=== PATIENT | female | born 2005 | race Caucasian/White ===

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

== ENCOUNTER 2025-03-06 08:22 | Inpatient (IN) ==
[2025-03-06] MEDS ORDERED: ROPIVACAINE 0.2% 200 MG/100 ML BAG EP ONE (10:42)
[2025-03-06] MEDS ORDERED: LIDOCAINE 2%-EPI 1:100000 20 ML MDV ONE (10:42)
[2025-03-06] MEDS ORDERED: METHYLERGONOVINE 0.2 MG/ML VIAL IM PRN (10:57)
[2025-03-06] MEDS ORDERED: METOCLOPRAMIDE 10 MG TABLET PO PRN (10:57)
[2025-03-06] MEDS ORDERED: ONDANSETRON ODT 4 MG TABLET PO PRN (10:57)
[2025-03-06] MEDS ORDERED: hydrALAZINE INJ 20 MG/ML VIAL IVP PRN (10:57)
[2025-03-06] MEDS ORDERED: OXYTOCIN 10 UNIT/ML VIAL IM PRN (10:57)
[2025-03-06] MEDS ORDERED: ACETAMINOPHEN 500 MG TABLET PO PRN ×2 (10:57→23:24)
[2025-03-06] MEDS ORDERED: OXYTOCIN/SODIUM CHLORIDE 500 ML IV PRN ×2 (10:57→23:24)
[2025-03-06] MEDS ORDERED: LABETALOL 20 MG/4 ML SYRINGE IVP PRN ×3 (10:57)
[2025-03-06] MEDS ORDERED: TERBUTALINE 1 MG/ML VIAL SUBQ PRN (10:57)
[2025-03-06] MEDS ORDERED: CARBOPROST TROMETHAMINE 250 MCG/ML VIAL IM PRN (10:57)
[2025-03-06] MEDS ORDERED: TRANEXAMIC ACID IN NACL 1,000 MG/100 ML BAG IV PRN (10:57)
[2025-03-06] MEDS ORDERED: LACTATED RINGERS 1,000 ML IV PRN (10:57)
[2025-03-06] MEDS ORDERED: SODIUM CHLORIDE FLUSH 0.9% 10 ML SYRINGE IVP SCH (11:00)
--- NOTE | 2025-03-06 11:10 | ANESTHESIA PROCEDURE NOTE ---
Pre-Anesthesia VS, & Labs Diagnosis Surgical Diagnosis:: labor pain Procedure Procedure: labor epidural Vitals Vital Signs: Temp Pulse Resp BP 36.6 C 95 18 124/74 03/06/25 08:33 03/06/25 08:33 03/06/25 08:33 03/06/25 08:33 NPO NPO: Other Is Patient ?: Yes Meds/Allgy Home Medications Ambulatory Orders Medication Instructions Recorded Confirmed aspirin 81 mg tablet,delayed 81 mg PO QDAY preeclampsi a 08/25/24 03/01/25 release prevention #180 tabs vitamins no.93-iron 31 1 tab PO QAM 08/25/24 03/01/25 mg-folate no.9 1 mg-dha-200 mg capsule ferrous sulfate 1 tab PO .every other day 03/01/25 epinephrine 0.3 mg/0.3 mL 0.3 mg (0.3 mL) IM Q5-15M SC N 02/22/25 03/01/25 injection, auto-injector (EpiPen anaphylaxis #2 ea 2-Stanislav) acetaminophen 325 mg tablet 325 mg PO Q6H PRN 03/01/25 03/01/25 (Tylenol) Allergies Allergies Allergy/AdvReac Type Severity Reaction Status Date / Time amoxicillin Allergy Intermediate Rash Verified 02/28/25 09:46 bee venom protein (honey bee) Allergy Unknown Verified 02/28/25 09:46 Penicillins AdvReac Unknown Verified 02/28/25 09:46 PFSH Active Problems All Active Problems Supervision of normal first in third trimester (Acute) Normal labor (Acute) Elevated LFTs (Acute) Anemia affecting (Acute) Supervision of normal in second trimester (Acute) Obesity affecting (Acute) Medical History Medical History Sinusitis, acute Humerus fracture Contusion of hip, left Laceration of mouth Family History Family History Sister Asthma Paternal grandmother Diabetes High blood pressure Maternal grandfather Heart attack Alcoholism Maternal grandfather Alcoholism Social History Social History Smoking Status: Former smoker Second hand tobacco smoke exposure: Yes Do you dip or chew tobacco?: No Do you vape?: Yes Patient requests smoking cessation consult: No Living arrangement: At home Living Condition: With family Level: Independent Do you feel safe in your home environment?: Yes History of physical, verbal, emotional, or financial abuse?: No ETOH Use: None Substance Use: denies use Are you sexually active?: Yes 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 Are you following a diet prescribed by a doctor: No Are you following a special diet: No POLST Patient has POLST: No POLST CPR Status: Attempt Resuscitation (CPR) Anesthesia Exam (Expanded) Exam General: Alert, Oriented x3 and Cooperative Dental: WNL Mouth Openin Fingerbreadth Neck Mobility: Normal Mallampati classification: III Thyromental Distance: 4-6 cm Respiratory: Lungs clear Cardiovascular: Regular rate Exam Exam Vital Signs: Vital Signs x48h Temp Pulse Resp BP 03/06/25 08:33 36.6 C 95 18 124/74 Plan Plan Anesthesia Type: Epidural Consent for Procedure(s) Verified and Reviewed: Yes Code Status: Attempt Resuscitation ASA Classification ASA classification: 2-Mild systemic disease Is this case an emergency?: No
--- OUTSIDE RECORDS SUMMARY | 2025-03-06 11:16 | EXTERNAL MEDICAL SUMMARY RPT | Continuity of Care Document ---
Author Organization [facility] Address [address] [place] [id number] Phone Problems date description facility 2024-12-08 13:49 Other specified diseases of blanca s and rectum [facility] 2024-12-08 13:49 Unspecified abdominal pain [facility] 2024-12-13 14:28 Encounter for immunization [facility] 2024-12-13 14:30 Encounter for superv ision of normal , unspecified, unspecified trimester [facility] 2024-12-13 14:30 Encounter for superv ision of normal , unspecified, second trimester [facility] 2024-12-14 00:04 Encounter for superv ision of normal , unspecified, unspecified trimester [facility] 2024-12-14 00:04 Encounter for superv ision of normal , unspecified, second trimester [facility] 2024-12-14 08:11 Encounter for superv ision of normal , unspecified, unspecified trimester [facility] 2024-12-14 08:11 Encounter for superv ision of normal , unspecified, second trimester [facility] 2024-12-14 08:14 Encounter for superv ision of normal , unspecified, unspecified trimester [facility] 2024-12-14 08:14 Encounter for superv ision of normal , unspecified, second trimester [facility] 2024-12-14 13:23 Encounter for superv ision of normal , unspecified, second trimester [facility] 2024-12-16 15:48 Abnormal glucose complicating p regnancy [facility] 2024-12-20 08:05 Abnormal glucose complicating p regnancy [facility] 2024-12-20 08:06 Abnormal glucose complicating p regnancy [facility] 2024-12-20 10:10 Abnormal glucose complicating p regnancy [facility] 2024-12-21 00:03 [facility]-21 11:14 Abnormal glucose complicating p [facility]paris [facility] 2025-01-26 00:02 Anemia complicating , unspecified [facility] 2025-01-27 08:45 Maternal care for br eech presentation, not applicable or unspecified [facility] 2025-01-27 08:45 Anemia complicating , unspecified [facility] 2025-01-27 08:45 33 weeks gestation [facility] 2025-02-10 15:30 Encounter for superv ision of normal , unspecified, third [facility] 2025-02-15 11:16 Encounter for screeni ng for Streptococcus B [facility] 2025-02-15 11:16 Allergy status to penicillin [employer] 2025-02-15 12:43 Encounter for screeni ng for Streptococcus B [facility] 2025-02-15 12:43 Allergy status to penicillin [facility] 2025-02-15 12:44 Encounter for screeni ng for Streptococcus B [facility] 2025-02-15 12:44 Allergy status to penicillin [employer] 2025-02-16 00:04 Encounter for screeni ng for Streptococcus B [facility] 2025-02-16 00:04 Allergy status to penicillin [employer] 2025-02-16 14:26 Encounter for screeni ng for Streptococcus B [facility] 2025-02-16 14:26 Allergy status to penicillin [facility] 2025-02-21 07:34 Obesity complicating , third [facility] 2025-02-21 07:34 Encounter for screeni ng for Streptococcus B [employer] 2025-02-21 07:34 Allergy status to penicillin [facility] 2025-02-21 07:35 Encounter for screeni ng for Streptococcus B [employer] 2025-02-21 07:35 Allergy status to penicillin [employer] 2025-02-22 10:57 Obesity complicating , unspecified trimester [facility] 2025-02-22 10:57 Bee allergy status [facility] 2025-02-24 07:50 Obesity complicating , third trimester [facility] 2025-02-24 07:51 Obesity complicating , unspecified trimester [facility] 2025-02-24 07:51 Obesity complicating , third trimester [facility] 2025-02-24 07:51 37 weeks gestation of [facility] 2025-02-24 07:51 Bee allergy status [facility] 2025-02-26 00:54 37 weeks gestation of [facility] 2025-02-26 01:08 37 weeks gestation of [facility] 2025-02-26 01:09 37 weeks gestation of [facility] 2025-02-26 02:18 37 weeks gestation of [facility] Results/Labs test date facility value unit notes Result panel 1 HGB - HEMOGLOBIN 2024-12-13 14:50 [facility] 10.2 g /dl (missing) WHITE BLOOD COUNT 2024-12-13 14:50 [facility] 10.3 x10 3/ul (missing) RED CELL DISTRIBUTION WIDTH 2024-12-13 14:50 [facility] 14.7 % (missing) GLUCOSE,1H PP 50GM DOSE 2024-12-13 14:50 [facility] 152 mg/dl Social History date description facility
[2025-03-06 11:21] LABS: HCT - HEMATOCRIT 35.2 % (37.0-47.0); HGB - HEMOGLOBIN 11.2 g/dL (12.0-16.0); MEAN PLATELET VOLUME 11.1 fL (7.9-10.8); NRBC ABSOLUTE COUNT (AUTO) 0.00 x10^3/uL; NUCLEATED RED BLOOD CELLS AUTO 0.0 /100WBC; PLT - PLATELET COUNT 339 10^3/uL (130-450); RED CELL DISTRIBUTION WIDTH 15.6 % (12.0-15.0)
--- NOTE | 2025-03-06 11:24 | PHARMACY PROGRESS NOTE ---
Best Possible Medication History Admit Date and Time: 03/06/25 [id number] Home Medications Medication Instructions Recorded Confirmed Type vitamins no.93-iron 31 1 tab PO QAM 08/25/24 03/06/25 History mg-folate no.9 1 mg-dha-200 mg capsule ferrous sulfate 1 tab PO .every other day 03/06/25 History epinephrine 0.3 mg/0.3 mL 0.3 mg (0.3 mL) IM Q5-15M CT N 02/22/25 03/06/25 Rx injection, auto-injector (EpiPen anaphylaxis #2 ea 2-Stanislav) acetaminophen 325 mg tablet 325 mg PO Q6H PRN fever or pain 03/01/25 03/06/25 History (Tylenol) aspirin 81 mg tablet,delayed 81 mg PO DAILY preeclamps ia 03/06/25 03/06/25 History release prevention Processed by: Nursing Medications reviewed in ED?: No Medication History completed: Yes Patient Interview: Completed (BY OB RN) Secondary Source(s): Physician records [facility] Statement: As the person ultimately responsible for medication therapy, providers are able to order a medication from an existing home medication list in [facility] via the "Reconcile Routine" prior to Confirmation of that medication by dealer support technician. Such practice is discouraged except when the physician, in their clinical judgment, deems that a medical need exists for a medication without regard to previous use.
[2025-03-06 11:29] LABS: ALT ALANINE AMINOTRANSFERASE 92.0 IU/L (10-60); AST ASPARTATE AMINOTRANSFERASE 65.0 IU/L (10-42); BUN - BLOOD UREA NITROGEN 4.0 mg/dL (6-20); CARBON DIOXIDE - CO2 21.0 mmol/L (21-32); CREATININE 0.4 mg/dL (0.6-1.3); GFR - MDRD 201.0 (>89)
[2025-03-06] MEDS: CALCIUM CARBONATE CHEW 500 MG TABLET PO PRN (11:51)
[2025-03-06] MEDS: LACTATED RINGERS 1,000 ML IV SCH (12:37)
[2025-03-06] MEDS: fentaNYL 100 MCG/2 ML VIAL IVP PRN (13:16)
[2025-03-06] MEDS ORDERED: NALOXONE 0.4 MG/ML VIAL IVP PRN ×2 (13:55→23:24)
[2025-03-06] MEDS ORDERED: LACTATED RINGERS 500 ML IV ONE (13:55)
[2025-03-06] MEDS ORDERED: METOCLOPRAMIDE 10 MG/2 ML VIAL IVP PRN (13:55)
[2025-03-06] MEDS ORDERED: ePHEDrine 50 MG/ML VIAL IVP PRN (13:55)
[2025-03-06] MEDS ORDERED: NALBUPHINE 10 MG/ML AMP IVP PRN (13:55)
[2025-03-06] MEDS ORDERED: ONDANSETRON 4 MG/2 ML VIAL IVP PRN (13:55)
--- NOTE | 2025-03-06 19:22 | HISTORY & PHYSICAL EXAMINATION ---
Admit History Visit Reason Visit Reason: Contractions : 1 Care: positive [facility] Risk/History: positive None Complications This : positive None Smoking Status: Current some day smoker (vaping) Mother's Labs GBS: positive Group B Step Negative Other Maternal History Other Maternal History: presents with contractions. painful. Here multiple times recently. ready to be done. 4 cm on her admitting exam. after admission today, patient received a phone call that ESTEFANI Eng was found at the [facility]. He was cold so there was not chance for resuscitation. patient says he partied but was not a consistent drug user. Patient lives with her mother and step father and her mom is great support for her. Many friends and family gathered here with her today. Finally we asked them to leave so she could get some rest. epidural was placed prior to their arrival and that helped a lot with her discomfort from contractions. Specific Issues/Plans LMP: 06/06/2024 BLAKE by LMP: 03/13/2025 US: 08/07/24 9+0 BLAKE by US 03/12/25 Final BLAKE: 03/13/25 Its a boy! [place]. Boyfriend - Velasquez - has two children. Step-daughter (4, lives here with them) and step-son (7, lives in [place]). Problems: - Obesity, starting BMI 39. Discussed recommended 11-20lb wt gain. Now BMI 40 and 251 pounds so did great. - weekly NSTs at 37wk - Vapes - - Anemia - Hgb 10.2 on 12/13. PO Fe recommended. Pre- Weight: 243lb BMI: 39.2 Blood type: O+ Antibody: negative CBC: PLT 390 HCT 39.8 HGB 12.8 RUB: immune VZV: NOT immune HBsAg: neg HepC: NR RPR/AB-EIA: NR HIV: NR PAP: never GC/CT: 08/25/24 neg HSV: denies Genetic testing: [id number] normal, boy. AFP ordered. Covid: declines, had virus Flu: given 08/25 FAS: 11/02/24 Placenta: posterior without previa Cord: 3VC MILY: WNL EFW: 422g, 51%ile 50gm OGCT: 152 3HR GTT: 90, 147, 129, 96 TDAP: 12/13/24 Breast Pump: given Antibody screen: 3rd trimester H/H PLT 10.3/30.4 327 3rd trimester RPR NR EPDS: 6 GBS:02/15- PCN allergy - negative Delivery plan: vaginal delivery MOD: Contraception: Kyleena IUD at 6wk PP HPI Current : Current EDU 03/13/25 Gestation 39 Weeks and 0 Days Para 0 Vital Signs Temperature 36.5 C 03/06/25 11:34 Pulse Rate 95 03/06/25 16:46 Respiratory Rate 16 03/06/25 16:46 Blood Pressure 116/68 03/06/25 16:46 O2 Saturation 98 03/06/25 16:46 NST Procedure NST Procedure: no indication for NST. Meds/Allgy Home Medications Ambulatory Orders Medication Instructions Recorded Confirmed vitamins no.93-iron 31 1 tab PO QAM 08/25/24 03/06/25 mg-folate no.9 1 mg-dha-200 mg capsule ferrous sulfate 1 tab PO .every other day 03/06/25 epinephrine 0.3 mg/0.3 mL 0.3 mg (0.3 mL) IM Q5-15M IN N 02/22/25 03/06/25 injection, auto-injector (EpiPen anaphylaxis #2 ea 2-Stanislav) acetaminophen 325 mg tablet 325 mg PO Q6H PRN fever or pain 03/01/25 03/06/25 (Tylenol) aspirin 81 mg tablet,delayed 81 mg PO DAILY preeclamps ia 03/06/25 03/06/25 release prevention Allergies Allergies Allergy/AdvReac Type Severity Reaction Status Date / Time amoxicillin Allergy Intermediate Rash Verified 02/28/25 09:46 bee venom protein (honey bee) Allergy Unknown Verified 02/28/25 09:46 Penicillins AdvReac Unknown Verified 02/28/25 09:46 PFSH Active Problems All Active Problems Supervision of normal first in third trimester (Acute) Normal labor (Acute) Elevated LFTs (Acute) Anemia affecting (Acute) Supervision of normal in second trimester (Acute) Obesity affecting (Acute) Medical History Medical History Sinusitis, acute Humerus fracture Contusion of hip, left Laceration of mouth Family History Family History Sister Asthma Paternal grandmother Diabetes High blood pressure Maternal grandfather Heart attack Alcoholism Maternal grandfather Alcoholism Social History Social History Smoking Status: Former smoker Second hand tobacco smoke exposure: Yes Do you dip or chew tobacco?: No Do you vape?: Yes Patient requests smoking cessation consult: No Initiate information on smoking cessation: No Living arrangement: At home Living Condition: With family Level: Independent Do you feel safe in your home environment?: Yes History of physical, verbal, emotional, or financial abuse?: No ETOH Use: None Substance Use: denies use Are you sexually active?: Yes 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 minimal swelling. no ROM or bleeding. Physical Abdominal Exam Vital Signs: Temp Pulse Resp BP Pulse Ox 36.5 C 95 16 116/68 98 03/06/25 11:34 03/06/25 16:46 03/06/25 16:46 03/06/25 16:46 03/06/25 16:46 heart RRR, breathing normally on admision. ON admit cervix 4 cm/90/-2 very soft, mid. at 10 am. Contraction Frequency (min/apart): every 5-6 min Contraction Intensity: positive Moderate Uterine Resting Tone: positive Soft Monitoring Heart Rate Baseline: 145 Strip Review: positive Category I Presentation Presentation: positive Vertex Vaginal Exam Membranes: positive Membranes intact Dilation (in cm): 6 Effacement (%): 100 Station: positive Ballotable Cervical Position: positive Midposition Speculum Exam Speculum Exam Performed: positive No Plan for Labor Plan For Labor I expect patient to be DC'd or transferred within 96 hours.: Yes Plan for Labor: Augment with oxytocin given loss of station. unsure about LFTs. will check more labs. comfortable wtih epidural. GBS negative. Conclusion/Plan Problem List (1) Normal labor: Plan: 1 cm last night to 4 cm this am to 6 cm at 7 pm. but head no longer engaged at last check. did feel like a head for sure. will start pitocin. Patient put in throne position for a while but then got light headed and hypotensive so head lowered. (2) Elevated LFTs: Plan: etiology unclear. patient denies taking any medications, supplements or anything at home other than asa, pnv and iron. will do more labs and see if they are coming down or going up. no other signs of preE. Given of FOB to drugs, that becomes part of the differential. But she is no longer alone to discuss this with her more indepth. will send MTP for now only. Lab Results 03/06/25 10:50 03/06/25 10:50
[2025-03-06] MEDS: OXYTOCIN/SODIUM CHLORIDE 500 ML IV SCH (20:02)
[2025-03-06 20:22] LABS: HCT - HEMATOCRIT 34.0 % (37.0-47.0); HGB - HEMOGLOBIN 10.7 g/dL (12.0-16.0); MEAN PLATELET VOLUME 11.0 fL (7.9-10.8); PLT - PLATELET COUNT 320.0 10^3/uL (130-450); RED CELL DISTRIBUTION WIDTH 15.7 % (12.0-15.0)
[2025-03-06 20:38] LABS: ALT ALANINE AMINOTRANSFERASE 100.0 IU/L (10-60); AST ASPARTATE AMINOTRANSFERASE 71.0 IU/L (10-42)
[2025-03-06 21:02] LABS: INR 1.1 (0.8-1.2); PT - PROTHROMBIN TIME 11.9 secs (9.9-12.6)
[2025-03-06] MEDS: ROPIVACAINE 0.2% 200 MG/100 ML BAG EP PRN (21:05)
--- NOTE | 2025-03-06 21:20 | PROVIDER PROGRESS NOTE ---
Labor Progress Note Uterine Monitoring Uterine Monitoring Mode: positive External toco Contraction Frequency (min/apart): q3, pitocin at 4 mu Contraction Intensity: positive Moderate Monitoring Monitor Mode: positive External ultrasound Heart Rate Baseline: 145 Heart Rate Variability: positive Moderate (6-25 bmp) Accelerations: positive Present, 15x15 Decelerations: positive None Strip Review: positive Category I Vaginal Exam Dilation (in cm): 7 Effacement (%): 100 Station: -2 Labor Progress Note Labor Progress Note/Additional Text: Arom ocurred with my check. fluid clear. feeling contractions more. labs more elevated but not by much. Very few pressures elevated randomly but highest was 140/75 with epidural at 14:21 and one was 139/88 just before epidural. so does not seem to be PreE. urine pending for protein. no signs of fatty liver. glucose normal. anticipate soon.
[2025-03-06 21:57] LABS: ESTIMATED AVERAGE GLUCOSE 100 mg/dL (70-100); HEMOGLOBIN A1c% 5.1 % (4.27-6.07)
[2025-03-06 22:05] LABS: TOTAL PROTEIN,URINE TIMED 11.0 mg/dL
[2025-03-06] MEDS: ACETAMINOPHEN 500 MG TABLET PO PRN (23:11)
[2025-03-06] MEDS ORDERED: SIMETHICONE CHEW 80 MG TABLET PO PRN (23:24)
--- NOTE | 2025-03-07 00:12 | DELIVERY NOTE ---
Delivery Note Labor Labor: positive Spontaneous and Augmented by oxytocin Delivery Method Infant Delivery Method: positive Spontaneous vaginal delivery Presentation Presentation: positive Vertex and OA - occiput anterior Nuchal Cord Nuchal Cord: positive None Amniotic Fluid Description Amniotic Fluid Description: positive Clear Episiotomy Type Episiotomy Type: positive None Laceration Laceration: positive 2nd degree Suture Suture Type: positive Vicryl (Rapide) Suture Size: positive 3-0 Delivery Outcome Delivery Date: 03/06/25 Delivery Time: 22:30 Delivery Outcome: positive Livebirth [place]: positive Placed in direct skin contact with mother, Stimulated and [place] used [place] sex: positive Male Cord Cord: positive 3 vessels Placenta Placenta: positive Intact and Spontaneous Estimated Blood Loss Estimated Blood Loss (in cc): 250 Post Delivery Events Post Delivery Events: positive No post delivery events Delivery Comments (Free Text/Narrative) Delivery Comments (Free Text/Narrative): Patient presented in labor 4 cm. received epidural after finding out that FOB had that morning. took a nap at our strong encouragement and woke up and I checked her. Baby was no longer engaged. She was 6 cm. Sat her up in bed and oxytocin started. next check she was 7 cm and baby was back in pelvis. AROM during exam inadvertently. baby to -2. about 1 hr later she was complete. She pushed for 15 min to deliver baby in OA position. baby placed on mom's abdomen. waited about 2 min to cut cord. placenta spontaneous. Pitocin in IV. Exam and there were some trailing membranes removed. 2nd degree laceration repaired with 3-0 Vicryl Rapide in 2 layers. placenta appears in tact. Shown to patient. Patient working on getting baby to breast. great support from her mom and sisters.
[2025-03-07] MEDS: IBUPROFEN 600 MG TABLET PO PRN (01:17)
[2025-03-07 09:15] LABS: HCT - HEMATOCRIT 31.4 % (37.0-47.0); HGB - HEMOGLOBIN 10.2 g/dL (12.0-16.0); MEAN PLATELET VOLUME 10.4 fL (7.9-10.8); PLT - PLATELET COUNT 247.0 10^3/uL (130-450); RED CELL DISTRIBUTION WIDTH 15.8 % (12.0-15.0)
[2025-03-07 09:30] LABS: ALT ALANINE AMINOTRANSFERASE 101.0 IU/L (10-60); AST ASPARTATE AMINOTRANSFERASE 69.0 IU/L (10-42); BUN - BLOOD UREA NITROGEN 5.0 mg/dL (6-20); CARBON DIOXIDE - CO2 20.0 mmol/L (21-32); CREATININE 0.5 mg/dL (0.6-1.3); GFR - MDRD 156.0 (>89)
[2025-03-07] MEDS: DOCUSATE SODIUM 100 MG CAPSULE PO PRN (10:15)
--- NOTE | 2025-03-07 22:02 | PROVIDER PROGRESS NOTE ---
Subjective Prog Note Date Prog Note Date: 03/07/25 Prog Note Time: 08:45 Subjective Subjective: feeling well. breast feeding doing well. lots of family supporting her. bleeding not too heavy. Baby 8 pounds 10 oz. Current Medications Current Medications Current Medications: Current Medications Generic Name Dose Route Start Last Admin Trade Name Freq PRN Reason Stop Dose Admin Acetaminophen 1,000 mg 03/06/25 10:57 03/07/25 16:09 Acetaminophen 500 Mg Tablet PO 1,000 mg Q8H PRN Administration Mild Pain or Fever>38C(100.4F) Acetaminophen 1,000 mg 03/06/25 23:24 Acetaminophen 500 Mg Tablet PO Q8HR PRN Mild Pain or Fever>38C(100.4F) Calcium Carbonate/Glycine 1,000 mg 03/06/25 10:57 03/06/25 21:29 Calcium Carbonate Chew 500 Mg Tablet PO 1,000 mg Q6HR PRN Administration Heartburn Docusate Sodium 200 mg 03/06/25 10:57 03/07/25 10:15 Docusate Sodium 100 Mg Capsule PO 200 mg BID PRN Administration Constipation Hydralazine HCl 5 - 10 mg 03/06/25 10:57 Hydralazine Inj 20 Mg/Ml Vial IVP Q20M PRN SBP> or= 160 OR DBP> or= 110 Protocol Oxytocin/Sodium Chloride 500 mls @ 999 mls/hr 03/06/25 23:24 Pitocin/Sodium Chloride IV PRN PRN POST- HEMORR PREVENTION Protocol 999 MILLIUNIT/MIN Ibuprofen 600 mg 03/06/25 23:24 03/07/25 16:08 Ibuprofen 600 Mg Tablet PO 600 mg Q6HR PRN Administration Moderate Pain (Level 4-6) Labetalol HCl 20 mg 03/06/25 10:57 Labetalol 20 Mg/4 Ml Syringe IVP .ONCE PRN SBP> or= 160 OR DBP> or= 110 Protocol Labetalol HCl 20 - 80 mg 03/06/25 10:57 Labetalol 20 Mg/4 Ml Syringe IVP Q10M PRN SBP> or= 160 OR DBP> or= 110 Protocol Labetalol HCl 20 - 40 mg 03/06/25 10:57 Labetalol 20 Mg/4 Ml Syringe IVP Q10M PRN SBP> or= 160 OR DBP> or= 110 Protocol Naloxone HCl 0.4 mg 03/06/25 23:24 Naloxone 0.4 Mg/Ml Vial IVP .ONCE PRN Opioid Overdose Nifedipine 10 - 20 mg 03/06/25 10:57 Nifedipine 10 Mg Capsule PO Q20M PRN SBP> or= 160 OR DBP> or= 110 Protocol Nifedipine 10 - 20 mg 03/06/25 23:24 Nifedipine 10 Mg Capsule PO Q20M PRN SBP >=160 and/or DBP >=110 Protocol Ondansetron HCl 4 mg 03/06/25 10:57 Ondansetron Odt 4 Mg Tablet PO Q4HR PRN Nausea / Vomiting Simethicone 80 mg 03/06/25 23:24 Simethicone Chew 80 Mg Tablet PO TID PRN Gas Objective Vital Signs/Intake & Output Vital Signs: Vital Signs x48h Temp Pulse Resp BP Pulse Ox 03/07/25 16:56 37.0 C 80 16 106/66 98 Intake & Output: Intake & Output 03/04/25 03/05/25 03/06/25 03/07/25 23:59 23:59 23:59 23:59 Intake Total 209 / 209 Output Total 850 / 850 400 / 400 Balance -641 / -641 -400 / -400 Weight (kg) 251 lb 15.99 oz Objective General Appearance: positive No acute distress Lab Results 03/07/25 09:06 03/07/25 09:06 Other Labs: Lab Results x24hrs 03/07/25 03/06/25 03/06/25 Range/Units 09:06 21:35 20:17 WBC 11.9 H (4.8-10.8) x10^3/uL RBC 3.92 L (4.20-5.40) 10^6/uL Hgb 10.2 L (12.0-16.0) g/dL Hct 31.4 L (37.0-47.0) % MCV 80.1 L (81.0-99.0) fL MCH 26.0 L (27.0-31.0) pg MCHC 32.5 (32.0-36.0) g/dL RDW 15.8 H (12.0-15.0) % Plt Count 247 (130-450) 10^3/uL MPV 10.4 (7.9-10.8) fL Sodium 135 (135-145) mmol/L Potassium 3.7 (3.5-4.5) mmol/L Chloride 107 (101-111) mmol/L Carbon Dioxide 20 L (21-32) mmol/L Anion Gap 8.0 (6-13) BUN 5 L (6-20) mg/dL Creatinine 0.5 L (0.6-1.3) mg/dL Estimated GFR (MDRD) 156 (>89) Glucose 121 H (74-104) mg/dL Estimat Average Glucose 100 (70-100) mg/dL Hemoglobin A1c % 5.1 (4.27-6.07) % Calcium 8.9 (8.5-10.3) mg/dL Total Bilirubin 0.4 (0.2-1.0) mg/dL AST 69 H (10-42) IU/L ALT 101 H (10-60) IU/L Alkaline Phosphatase 181 H (42-121) IU/L Total Protein 5.8 L (6.4-8.9) g/dL Albumin 3.1 L (3.2-5.5) g/dL Globulin 2.7 (2.1-4.2) g/dL Albumin/Globulin Ratio 1.1 (1.0-2.2) Urine Creatinine 56.0 mg/dL Ur Total Protein Timed 11 mg/dL Protein/Creatinin Ratio 0.2 (<=0.2) Assessment/Plan Problem List (1) Normal labor: Impression: delivered without complication (2) Elevated LFTs: Impression: unclear etiology. still no evidence preE. have leveled off. Will recheck in am tomorrow 9 am before discharge. (3) Spouse : Impression: trying to help her figure out how to get his name on certificate. SW consult done. Also community health nurse aware.
[2025-03-08 10:04] LABS: ALT ALANINE AMINOTRANSFERASE 100.0 IU/L (10-60); AST ASPARTATE AMINOTRANSFERASE 55.0 IU/L (10-42); BUN - BLOOD UREA NITROGEN 6.0 mg/dL (6-20); CARBON DIOXIDE - CO2 22.0 mmol/L (21-32); CREATININE 0.5 mg/dL (0.6-1.3); GFR - MDRD 156.0 (>89)
--- NOTE | 2025-03-08 16:50 | PROVIDER PROGRESS NOTE ---
Subjective Prog Note Date Prog Note Date: 03/08/25 Prog Note Time: 16:48 Subjective Subjective: Namrata was seen at bedside twice today. She denies headaches, vision changes, abdominal pain. Reports bleeding is minimal. She is baby. Has had very minimal sleep. Just doesn't feel ready to go home today, not sure how to go home without her partner there. Current Medications Current Medications Current Medications: Current Medications Generic Name Dose Route Start Last Admin Trade Name Freq PRN Reason Stop Dose Admin Acetaminophen 1,000 mg 03/06/25 10:57 03/08/25 16:06 Acetaminophen 500 Mg Tablet PO 1,000 mg Q8H PRN Administration Mild Pain or Fever>38C(100.4F) Acetaminophen 1,000 mg 03/06/25 23:24 Acetaminophen 500 Mg Tablet PO Q8HR PRN Mild Pain or Fever>38C(100.4F) Calcium Carbonate/Glycine 1,000 mg 03/06/25 10:57 03/06/25 21:29 Calcium Carbonate Chew 500 Mg Tablet PO 1,000 mg Q6HR PRN Administration Heartburn Docusate Sodium 200 mg 03/06/25 10:57 03/08/25 08:41 Docusate Sodium 100 Mg Capsule PO 200 mg BID PRN Administration Constipation Hydralazine HCl 5 - 10 mg 03/06/25 10:57 Hydralazine Inj 20 Mg/Ml Vial IVP Q20M PRN SBP> or= 160 OR DBP> or= 110 Protocol Oxytocin/Sodium Chloride 500 mls @ 999 mls/hr 03/06/25 23:24 Pitocin/Sodium Chloride IV PRN PRN POST- HEMORR PREVENTION Protocol 999 MILLIUNIT/MIN Ibuprofen 600 mg 03/06/25 23:24 03/08/25 10:15 Ibuprofen 600 Mg Tablet PO 600 mg Q6HR PRN Administration Moderate Pain (Level 4-6) Labetalol HCl 20 mg 03/06/25 10:57 Labetalol 20 Mg/4 Ml Syringe IVP .ONCE PRN SBP> or= 160 OR DBP> or= 110 Protocol Labetalol HCl 20 - 80 mg 03/06/25 10:57 Labetalol 20 Mg/4 Ml Syringe IVP Q10M PRN SBP> or= 160 OR DBP> or= 110 Protocol Labetalol HCl 20 - 40 mg 03/06/25 10:57 Labetalol 20 Mg/4 Ml Syringe IVP Q10M PRN SBP> or= 160 OR DBP> or= 110 Protocol Naloxone HCl 0.4 mg 03/06/25 23:24 Naloxone 0.4 Mg/Ml Vial IVP .ONCE PRN Opioid Overdose Nifedipine 10 - 20 mg 03/06/25 10:57 Nifedipine 10 Mg Capsule PO Q20M PRN SBP> or= 160 OR DBP> or= 110 Protocol Nifedipine 10 - 20 mg 03/06/25 23:24 Nifedipine 10 Mg Capsule PO Q20M PRN SBP >=160 and/or DBP >=110 Protocol Ondansetron HCl 4 mg 03/06/25 10:57 Ondansetron Odt 4 Mg Tablet PO Q4HR PRN Nausea / Vomiting Simethicone 80 mg 03/06/25 23:24 Simethicone Chew 80 Mg Tablet PO TID PRN Gas Objective Vital Signs/Intake & Output Vital Signs: Vital Signs x48h Temp Pulse Resp BP Pulse Ox 03/08/25 16:24 98.1 F 76 16 125/75 98 03/08/25 14:16 98.2 F 72 20 126/78 100 03/08/25 11:15 132/79 H Intake & Output: Intake & Output 03/05/25 03/06/25 03/07/25 03/08/25 23:59 23:59 23:59 23:59 Intake Total 209 / 209 Output Total 850 / 850 400 / 400 Balance -641 / -641 -400 / -400 Weight (kg) 251 lb 15.99 oz Objective Comments/Other: Gen: NAD Chest: non labored respirations Abd: soft, non tender, fundus firm Ext: minimal LE edema, no evidence of VTE Lab Results 03/07/25 09:06 03/08/25 09:36 Other Labs: Lab Results x24hrs 03/08/25 Range/Units 09:36 Sodium 138 (135-145) mmol/L Potassium 3.6 (3.5-4.5) mmol/L Chloride 108 (101-111) mmol/L Carbon Dioxide 22 (21-32) mmol/L Anion Gap 8.0 (6-13) BUN 6 (6-20) mg/dL Creatinine 0.5 L (0.6-1.3) mg/dL Estimated GFR (MDRD) 156 (>89) Glucose 140 H (74-104) mg/dL Calcium 8.9 (8.5-10.3) mg/dL Total Bilirubin 0.3 (0.2-1.0) mg/dL AST 55 H (10-42) IU/L ALT 100 H (10-60) IU/L Alkaline Phosphatase 161 H (42-121) IU/L Total Protein 6.0 L (6.4-8.9) g/dL Albumin 3.3 (3.2-5.5) g/dL Globulin 2.7 (2.1-4.2) g/dL Albumin/Globulin Ratio 1.2 (1.0-2.2) Assessment/Plan Problem List (1) care and examination of lactating mother: (2) Elevated LFTs: Impression: Slightly downtrending today. (3) Spouse : Impression: - Plan to continue inpatient care for blood pressure monitoring tonight. She had one mild range blood pressure this morning but blood pressures have otherwise been normal and she has no preeclampsia symptoms, labs otherwise normal. Will repeat LFTs tomorrow morning. Discussed plan for close outpatient follow up once discharged as well, increased risk for depression given circumstances. She does feel that resources provided with SW will be helpful. Anticipate discharge home tomorrow.
[2025-03-09 10:23] LABS: ALT ALANINE AMINOTRANSFERASE 87.0 IU/L (10-60); AST ASPARTATE AMINOTRANSFERASE 41.0 IU/L (10-42); BUN - BLOOD UREA NITROGEN 7.0 mg/dL (6-20); CARBON DIOXIDE - CO2 23.0 mmol/L (21-32); CREATININE 0.5 mg/dL (0.6-1.3); GFR - MDRD 156.0 (>89)
--- NOTE | 2025-03-09 10:55 | Discharge Summary ---
Discharge Summary Admit Date: 03/06/25 Discharge Date: 03/09/25 Discharging Provider: Dane Motley MD HPI History of Present Illness: Admission Diagnosis: - Term - Elevated LFTs - GBS neg - Varicella nonimmune - Obesity in - Anemia in Discharge Diagnosis: - Same, delivered - Gestational hypertension Procedures: with repair of 2nd degree laceration Hospital Course: aNmrata in a 20yo now who presented at term in labor at 4cm, progressed to 6cm and then AROM was performed. She progressed quickly to complete and then delivered baby after pushing for 15 min. Baby weighed [id number]. After admission, Namrata was notifed that her partner Velasquez had passed earlier in the day. She had multiple family members present providing support, including her mom, throughout her stay. Namrata had been noted to have elevated LFTs at a triage visit several days several days prior to admission, had presented for labor evaluation and also to discuss possible concussion after falling the day prior (had fallen on her face, bit through her lip, was evaluated in the ED). She had a headache at that time so CBC, CMP was checked and LFTs found to be elevated (AST 37, ALT 64 on 03/02), but she had no other evidence of preeclampia (no elevated blood pressures and labs otherwise normal). She was instructed to repeat labs outpatient 2 days later but did not go. On 03/06, day of admission for labor, LFTs had uptrended (AST 65, ALT 92). During admission, they peaked at AST 71, ALT 101 and then downtrended. She had no other symptoms of preeclampsia. She did have two mildly elevated blood pressures 4hrs apart meeting criteria for gestational hypertension, but blood pressures were otherwise normal range. In speaking with nursing, it was also thought that elevations may be positional. Namrata was seen by social work and given resources regarding supports groups and counseling. Condition on Discharge: SUBJECTIVE: day 3 s/p Today, Namrata reports feeling ready to go home. While she is grieving her partners , she is ready to go home and smell his things, have her baby in her home, and let baby meet her dogs. She is having more discomfort from her stitches today, but pain overall well controlled with current medications. The baby is doing well. Baby is feeding via breastreeding. Namrata reports her mom is very supportive and will be able to help with at home. She is ambulating well, tolerating normal diet, urinating without difficulty. Lochia is reported as normal. Denies headache, vision changes, upper abdominal pain. OBJECTIVE: Vital signs reviewed GENERAL: NAD CHEST: non labored respirations ABD: soft, non tender, fundus firm EXT: very minimal lower extremity edema; No evidence of DVT LAB & IMAGING STUDIES: See below PLAN: Plan for discharge home with follow up in clinic on Thursday at 1pm. Outpatient CBC, CMP ordered to be completed prior to appointment on Thursday. Reviewed home care instructions and medications. Patient counseled regarding signs and symptoms of infection, excessive bleeding, vaginal rest and activity restrictions. We discussed preeclampsia precautions in detail and she was given blue preeclampsia risk wristband. She does have a blood pressure cuff at home, will check blood pressures 1-2 x daily or if feeling off. Discussed that additional support is available in our clinic if needed. Discussed increased risk for depression with loss of her partner,, encouraged her to reach out to us for support if she finds herself struggling. We also discussed calling 911, [phone], or going to the ED if she has thoughts of harming herselt or baby. ALLERGIES Allergies Allergy/AdvReac Type Severity Reaction Status Date / Time amoxicillin Allergy Intermediate Rash Verified 03/08/25 10:45 bee venom protein (honey bee) Allergy Unknown Verified 03/08/25 10:45 Penicillins AdvReac Unknown Verified 03/08/25 10:45 MEDICATIONS Ambulatory Orders Medication Instructions Recorded Confirmed vitamins no.93-iron 31 1 tab PO QAM 08/25/24 03/06/25 mg-folate no.9 1 mg-dha-200 mg capsule ferrous sulfate 1 tab PO .every other day 03/06/25 epinephrine 0.3 mg/0.3 mL 0.3 mg (0.3 mL) IM Q5-15M KS N 02/22/25 03/06/25 injection, auto-injector (EpiPen anaphylaxis #2 ea 2-Stanislav) acetaminophen 325 mg tablet 325 mg PO Q6H PRN fever or pain 03/01/25 03/06/25 (Tylenol) PHYSICAL EXAM AT DISCHARGE Vital Signs: Vital Signs x48h Temp Pulse Resp BP Pulse Ox 03/09/25 11:11 98.1 F 69 19 109/64 98 03/09/25 08:22 98.2 F 77 17 123/71 99 03/09/25 05:00 98.1 F 76 16 117/67 LABS 03/07/25 09:06 03/09/25 10:03 Discharge Plan Discharge Patient Disposition: 01 Home, Self Care Prescriptions: Continued 42-dbco-adodus 9-dha 31 mg iron- 1 mg-200 mg capsule 1 tab PO QAM acetaminophen [Tylenol] 325 mg tablet 325 mg PO Q6H PRN (Reason: fever or pain) ferrous sulfate 1 tab PO .every other day epinephrine [EpiPen 2-Stanislav] 0.3 mg/0.3 mL auto-injector 0.3 mg IM Q5-15M PRN (Reason: anaphylaxis) Qty: 2 3RF Discontinued aspirin 81 mg tablet,delayed release (DR/EC) 81 mg PO DAILY Rx Instructions: Start taking at 12 weeks of and continue throughout . Activity Restrictions/Additional Instructions: What is preeclampsia? preeclampsia is high blood pressure that develops after childbirth, usually within 48 hours to 6 weeks.It can happen even if blood pressure was normal during .This condition can be serious and may lead to complications like stroke or seizures if not treated quickly.[2-3][7] Why is it important to watch for? Most problems from preeclampsia happen in the first week after delivery, often after leaving the hospital.Blood pressure often peaks 36 days after .Early recognition and treatment can prevent serious health issues.[ 1-3] Who is at higher risk? History of high blood pressure or preeclampsia during Older age, obesity, Black race, or delivery[7-8] Belcher precautions and steps: 1.Know the warning signs. Call your healthcare provider or seek emergency care if you experience: Severe headache that wont go away Vision changes (blurry vision, seeing spots) Pain in the upper right belly Shortness of breath or chest pain Swelling in your face or hands Sudden weight gain Nausea or vomiting[1-3][7] 2.Monitor your blood pressure at home. Use a home blood pressure monitor as instructed. Check your blood pressure daily for at least the first week after delivery, or as directed by your provider. Record your readings and share them at your follow-up visit.[1-3][5][9] 3.Attend all follow-up appointments. Schedule a blood pressure check within 310 days after leaving the hospital. If you had severe hypertension, a visit within 72 hours is recommended.[1][4] Continue regular check-ups as advised. 4.Take medications as prescribed. If you are given blood pressure medicine, take it exactly as directed. Most blood pressure medicines are safe while .[3] 5.Avoid certain pain medications. Nonsteroidal anti-inflammatory drugs (NSAIDs) like ibuprofen may raise blood pressure in some women. Ask your provider about safe options for pain relief.[2- 3] 6.Long-term health steps. Having preeclampsia increases your risk for heart disease, stroke, and diabetes later in life. Maintain a healthy weight, eat a balanced diet, exercise regularly, and avoid smoking.[1][6][10] Get your blood pressure checked at least once a year.[5] When to seek emergency help: If you have any of the warning signs above, especially severe headache, vision changes, chest pain, or trouble breathing, call 911 or go to the emergency room right away.[1-3][7] Summary preeclampsia is a serious condition that can develop after childbirth.Monitoring your blood pressure, knowing the warning signs, attending follow-up visits, and making healthy lifestyle choices are belcher to staying safe. [1-6] If you have questions or concerns, contact your healthcare provider. Print Language: Divehi Patient Instructions: After a Vaginal , Perineum Care After Childbirth, Breast Care After , Incision Care After Vaginal Follow-up Care: Dane Motley MD [Primary Care Provider, Obstetrics/Gynecology] Vitals documented within 30 minutes of discharge?: Yes
[2025-03-09] MEDS: VARICELLA VACCINE LIVE/PF 1,350 UNIT/0.5 ML VIAL SUBQ ONE (11:08)
[2025-03-09 11:12] VITALS: BP 109/64; TEMP 98.1; O2SAT 98
--- NOTE | 2025-03-09 11:22 | Labor Flowsheet ---
Labor Flowsheet Datetime Report Generated by CPN: 03/09/2025 11:22 Datetime: 03/09/2025 11:08 VITAL SIGNS NBP Sys/Muriel/Mean (mmHg): 109 : 64 : 73 Pulse: 76 Datetime: 03/08/2025 04:03 Stage of : Datetime: 03/06/2025 22:30 UTERINE ACTIVITY Monitor Mode: External Frequency (min): 1.5-2 Quality: Strong Duration (sec): 50-80 Pattern: Normal: <= 5 Contractions in 10 Minutes Resting Tone (Palpate): Relaxed FHR Baseline Rate : 145 Variability: Moderate 6-25 bpm Decelerations: Early; Variable Datetime: 03/06/2025 22:15 Actions for Decelerations: Sterile Vaginal Exam Datetime: 03/06/2025 22:12 Communication Comments: pushing initiated Datetime: 03/06/2025 22:10 I/O Interventions: Tafoya Discontinued Datetime: 03/06/2025 22:02 VAGINAL EXAM Dilatation (cm): 10.0 Effacement (%): 100 Station: 1 Exam by: Kcaron RN Datetime: 03/06/2025 22:01 ASSESSMENT A Monitor Mode: External US Accelerations: 15X15 Datetime: 03/06/2025 21:46 LaborFlag: Labor Datetime: 03/06/2025 21:30 Pitocin Checklist: At Least 1 Acceleration of 15 bpm x 15 Seconds in 30 Minutes or Adequate Variability; No More than 1 Late Deceleration Occurred in Past 30 Minutes; No More than 2 Variable Decelerations > 60 Seconds in Duration and decreasing >60 bpm in 30 minutes; No More than 5 Uterine Contractions in 10 Minutes for any 20 Minute Interval; Uterus Palpates Soft between Contractions Contraction Comments: coupling Oxygen Method: Room Air Datetime: 03/06/2025 21:16 Temperature (C): 37.0 Datetime: 03/06/2025 21:14 Patient Position/Activity: Left Lateral Datetime: 03/06/2025 21:05 Membranes Rupture Method: Artificial Amniotic Fluid Color: Clear Amniotic Fluid Amount: Moderate Amniotic Fluid Odor: Normal Datetime: 03/06/2025 19:49 COMMUNICATION Communication: RN at Bedside; Provider at Bedside Datetime: 03/06/2025 19:47 PATIENT CARE IV/Blood Work: IV Bolus Started Datetime: 03/06/2025 18:57 Patient Care Comments: throne position w/ left tilt Datetime: 03/06/2025 18:55 SpO2 (%): 99 Datetime: 03/06/2025 18:54 Vaginal Exam Comments: head not engaged in cervix Datetime: 03/06/2025 18:32 Category: Category I Datetime: 03/06/2025 18:20 Monitor Interventions for FHR: Ultrasound Adjusted Datetime: 03/06/2025 17:30 Comments: Monitor has audible FHR around 135-140 but unable to show due mom positioning Datetime: 03/06/2025 17:00 Membrane Status: Intact Datetime: 03/06/2025 14:30 FHR Baseline Changes: No Baseline Change Datetime: 03/06/2025 14:13 PAIN Pain Presence: None/Denies Pain Type: N/A Datetime: 03/06/2025 13:42 Anesthesia Comments: 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
== END 2025-03-09 11:20 | disposition home or self-care (01) | DRG 807 ==
LOC: WFO 08:22 → FBP 08:25
PROVIDERS: ADMIT Obstetrics & Gynecology; ATTEND Obstetrics & Gynecology